=== PATIENT | female | born 1990 | race Hispanic/Latino ===

== ENCOUNTER 2017-09-01 11:16 | Emergency (ER) | payer MEDICAID ==
[~2017-09-01 11:16] MED LIST: FERR15DR26 PO; PREN-196 PO
[2017-09-01] MEDS ORDERED: ACETAMINOPHEN 325 MG TAB ONE (11:37)
[2017-09-01] MEDS ORDERED: CLINDAMYCIN HCL 150 MG CAP ONE (11:37)
== END 2017-09-01 11:50 | disposition home or self-care (01) ==
LOC: EDH 11:16
DX: K08.89 Other specified disorders of teeth and supporting structures (principal); E78.5 Hyperlipidemia, unspecified; F32.9 Major depressive disorder, single episode, unspecified; Z88.0 Allergy status to penicillin; Z88.1 Allergy status to other antibiotic agents

== ENCOUNTER 2018-01-27 21:47 | Emergency (ER) | payer MEDICAID ==
[2018-01-27] MEDS ORDERED: KETOROLAC TROMETHAMINE 60 MG/2 ML VIAL ONE (22:35)
== END 2018-01-27 23:03 | disposition home or self-care (01) ==
LOC: EDH 21:47
DX: K02.9 Dental caries, unspecified (principal); E78.5 Hyperlipidemia, unspecified; F41.9 Anxiety disorder, unspecified; F32.9 Major depressive disorder, single episode, unspecified; Z88.0 Allergy status to penicillin; Z88.8 Allergy status to other drugs, medicaments and biological substances
CPT/HCPCS: 96372; 99283; J1885

== ENCOUNTER 2018-04-03 11:01 | Emergency (ER) | payer MEDICAID ==
[2018-04-03 12:04] LABS: APPEARANCE,URINE Clear (CLEAR); BILIRUBIN,URINE Negative (NEGATIVE); COLOR,URINE Yellow (YELLOW); GLUCOSE, URINE (UA) Negative (NEGATIVE); KETONES,URINE Negative (NEGATIVE); LEUKOCYTE ESTERASE ,URINE Small (NEGATIVE); NITRATE,URINE Negative (NEGATIVE); OCCULT BLOOD,URINE Negative (NEGATIVE); PROTEIN,URINE Negative (NEGATIVE)
[2018-04-03] MEDS ORDERED: KETOROLAC TROMETHAMINE 60 MG/2 ML VIAL ONE (12:05)
[2018-04-03] MEDS ORDERED: DEXAMETHASONE SOD PHOSPHATE 10MG/ML 1ML VIAL ONE (12:05)
[2018-04-03] MEDS ORDERED: HYDROCODONE/ACETAMINOPHEN 10/325 MG TAB ONE (12:06)
[2018-04-03 12:08] LABS: HCG,QUAL RESULT NEGATIVE (NEGATIVE)
[2018-04-03 12:13] LABS: BACTERIA,URINE Rare /HPF (None Seen); RBC,URINE None Seen /HPF (0-1); SQUAMOUS EPITHELIAL CELL,UR Few /HPF (0-2); WBC,URINE 0-1 /HPF (0-1)
[2018-04-03 12:14] LABS: MUCUS,URINE Rare LPF (None Seen)
== END 2018-04-03 13:46 | disposition home or self-care (01) ==
LOC: EDH 11:01
DX: M54.5 Low back pain (principal); F41.9 Anxiety disorder, unspecified; F32.9 Major depressive disorder, single episode, unspecified; E78.5 Hyperlipidemia, unspecified; Z88.0 Allergy status to penicillin; Z88.8 Allergy status to other drugs, medicaments and biological substances
CPT/HCPCS: 81001; 81025; 96372 ×2; 99283; J1100; J1885